=== PATIENT | male | born 1990 | race Caucasian/White ===

== ENCOUNTER 2025-01-08 21:11 | Emergency (ER) | payer SELFPAY ==
[~2025-01-08] VITALS: Ht 190.5 cm; Wt 190.3 kg
[2025-01-09] MEDS ORDERED: CETIRIZINE 10 MG TAB PO ONE (01:05)
[2025-01-09] MEDS ORDERED: TRIA1CR80 TOP (01:08)
[2025-01-09] MEDS ORDERED: CETI10CH PO (01:08)
[2025-01-09] MEDS: CETIRIZINE 10 MG TAB PO ONE (01:14)
[2025-01-09 01:15] VITALS: BP 142/98; TEMP 98.1; O2SAT 96
== END 2025-01-09 01:25 | disposition home or self-care (01) ==
LOC: M ED 21:11
DX: L25.9 Unspecified contact dermatitis, unspecified cause (principal)